=== PATIENT | female | born 1995 | race Caucasian/White ===

== ENCOUNTER 2021-02-06 09:53 | Emergency (ER) | payer OTHER ==
[~2021-02-06] VITALS: Ht 160 cm; Wt 97.5 kg
[2021-02-06] MEDS ORDERED: APAP W/CODEINE1 TA2 PO (10:40)
[2021-02-06] MEDS ORDERED: AMOXICILLIN 50500 MG PO (10:40)
[2021-02-06 10:53] VITALS: BP 124/68
== END 2021-02-06 10:54 | disposition home or self-care (01) ==
LOC: M.ERS 09:53
DX: H66.91 Otitis media, unspecified, right ear (principal); J02.9 Acute pharyngitis, unspecified